=== PATIENT | male | born 1930 | race Caucasian/White ===

== ENCOUNTER → 2016-06-27 | Outpatient (CLI) | payer MEDICARE ==
[~2016-06-27] MED LIST: ACET50TAOT PO; ATEN25TA PO; CALC1CAP31 PO; ELIQ2.5T PO; FINA5TAB2 PO; FURO20TA2 PO; FURO40TA2 PO; GLIM4TAB PO; GLUC750T22 PO; JANU25TA PO; LOSA25TA8 PO; OXYB5TA PO; PRAV40TA2 PO; TERA5CA PO; VITA-121 PO
--- NOTE | 2016-06-27 15:01 | REP ---
CHEST X-RAY: Two views. HISTORY: Dyspnea. COMPARISON CHEST X-RAY: August 04, 2015. FINDINGS: Moderate cardiomegaly is again observed. There is fissural thickening visible on the lateral radiograph similar to the prior study. There is blunting of the left pleural angles consistent with left pleural fluid. This is similar to the prior study as well. Some pleural thickening is noted on the left. There is an old healed rib fracture on the left as well. Pulmonary vasculature is slightly cephalized. The aorta is calcific and tortuous. There are advanced degenerative changes in the shoulders. IMPRESSION: Cardiomegaly with blunting of the left pleural angle suggesting small left effusion. Pulmonary vascular cephalization. Fissural thickening. CHF pattern. Signed by Clint Garnica MD 06/27/2016 04:00 P
== END ==
LOC: M WUC 10:36
PROVIDERS: ATTEND Internal Medicine Cardiovascular Disease
DX: R06.00 Dyspnea, unspecified (principal); R91.8 Other nonspecific abnormal finding of lung field

== ENCOUNTER 2017-01-17 20:36 | Inpatient (IN) | payer MEDICARE ==
[~2017-01-17] VITALS: Ht 165.1 cm; Wt 88.1 kg
[~2017-01-17 20:36] MED LIST changes: -OXYB5TA PO; +OXYB5TAB10 PO
[2017-01-17] MEDS: FINASTERIDE 5 MG TAB PO SCH (21:00)
[2017-01-17] MEDS ORDERED: PRAVASTATIN 20 MG TAB PO SCH (21:00)
[2017-01-17] MEDS: APIXABAN 2.5 MG TAB (ELIQUIS) PO SCH (21:00)
[2017-01-17] MEDS: oxyBUTYnin 5 MG TAB PO SCH (21:00)
[2017-01-17 21:01] LABS: BASO % 0.1 % (0.0-1.0); IMMATURE GRANULOCYTE % 0.4 % (0-0); LYMPH # 0.3 10^3/uL (1.5-4.5); LYMPH % 3.1 % (24.0-44.0); MEAN CORPUSCULAR HEMOGLOBIN 30.7 pg (27.0-33.0); MEAN CORPUSCULAR HGB CONC 31.5 g/dl (32.0-36.5); MEAN CORPUSCULAR VOLUME 97.5 fl (80.0-96.0); MONO # 0.4 10^3/uL (0.0-0.8); NEUTROPHILS # 9.5 10^3/uL (1.8-7.7); NEUTROPHILS % 92.4 % (36.0-66.0); PLATELET COUNT, AUTOMATED 123 10^3/uL (150-450); RED CELL DISTRIBUTION WIDTH 16.4 % (11.5-14.5); WHITE BLOOD COUNT 10.3 10^3/uL (4.0-10.0)
[2017-01-17] MEDS ORDERED: SPIR25TA2 PO (21:04)
[2017-01-17 21:12] LABS: INR 1.28
[2017-01-17 21:14] LABS: CALCIUM LEVEL 9.8 MG/DL (8.8-10.2); CREATININE FOR GFR 1.98 MG/DL (0.70-1.30); GLOMERULAR FILTRATION RATE 34.1 (>35); POTASSIUM SERUM 4.7 MEQ/L (3.5-5.1)
[2017-01-17 21:16] VITALS: BP 168/102
[2017-01-17] MEDS ORDERED: LABETALOL HCL 100 MG/20 ML VIAL IV STA (21:16)
[2017-01-17] MEDS ORDERED: PIPERACILLIN/TAZOBACTAM SOD 3.375 GM in D5W 50 ML IV ONE (21:30)
--- NOTE | 2017-01-17 21:40 | REPUSA ---
CT of the head Clinical history: CVA. Protocol: Multiple axial CT images obtained with 5 mm slice thickness were obtained through the head without administration of contrast. Findings: There is a large area of low attenuation in the distribution of the left middle cerebral ar henry. A smaller area of low attenuation is seen in the left frontal lobe as well. The ventricles and sulci are symmetric but prominent in size bilaterally. There are periventricular areas of low attenua tion throughout the deep white matter. There is no evidence of acute hemorrhage. There is no midline shift, mass effect, or extra-axial fluid collection. The osseous structures are unremarkable. There i s an air fluid level in the left maxillary sinus. The other visualized paranasal sinuses and mastoid air cells are clear. Impression: 1. Acute left middle cerebral artery infarct. 2. Possible acute infarct in the left anterior cerebral artery is well involving the left frontal lob e. 3. Findings are consistent with age-related atrophy and chronic small vessel ischemic disease. 4. MRI would be helpful for further evaluation. 5. Left maxillary sinusitis. Dr. Worthy was notified of these findings at 9:30 PM on 01/17/2017.
[2017-01-17] MEDS ORDERED: ONDANSETRON 4MG/2ML VIAL (J2405) IV ONE (21:45)
[2017-01-17] MEDS ORDERED: PRAV80TA2 PO (22:06)
[2017-01-17] MEDS ORDERED: IPRATROPIUM 0.5MG/ALBUTEROL 2.5MG INH SOL UD 3ML (DUONEB)(J7620) NEB PRN (22:45)
[2017-01-17] MEDS ORDERED: FURO20TA2 PO (22:55)
[2017-01-17] MEDS ORDERED: PATIENT COMMENT (22:55)
[2017-01-18] VITALS (9 sets, daily range): BP systolic 131–168; BP diastolic 73–105; O2SAT 95–96
--- NOTE | 2017-01-18 02:54 | HPEPDOC ---
[facility] Medical History & Physical Date of Admission Jan 17, 2017 Other Provider PCP Mitch Attending Physician: SUNG DICKSON MD History and Physical ALCOHOLIC COUNSELOR: Dr. Ruff SPECIALIST FIELD ENGINEER: Dr. Ibarra CHIEF COMPLAINT: Altered mentation HISTORY OF PRESENT ILLNESS: [Patient found at home and unresponsive to the emergency department by police and EMT. Last known time of neurologically intact and at baseline was close to 24 hours ago as reported by his daughter. Unable to give meaningful history from the patient since he is nonverbal at this point. Evaluation by emergency department provider demonstrated a large ischemic stroke involving the left MCA, left anterior artery and left frontal lobe. Hospitalist was called for admission. Patient did not receive TPA since he was outside the window. Unable to give meaningful history from the patient. This was obtained from the patient's daughter and the electronic medical record. PAST MEDICAL HISTORY: 1. Sleep apnea with 2.5 liters at night. 2. Diabetes, uncontrolled. 3. Congestive heart failure unknown 4. History of Afib 5. Chronic kidney disease PAST SURGICAL HISTORY: 1. Cholecystectomy. 2. Hernia repair. 3. Carpal tunnel repair, bilateral. 4. Cataract surgery, bilateral . SOCIAL HISTORY: he lives alone. The patient had a history of chewing tobacco and using a pipe for 15 years; however, he quit during 1970s. The patient also expressed that he used to drink alcohol for 15 years as well. However, he quit during 1970s. Patient denies a history of illicit drug use. The patient expressed that he only traveled to [place]. Patient was in the . The patient [place] 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 FAMILY HISTORY: Noncontributory ALLERGIES: Please see below. REVIEW OF SYSTEMS: Unable to ascertain HOME MEDICATIONS: Please see below. PHYSICAL EXAMINATION: VITAL SIGNS: See below GENERAL APPEARANCE: No acute distress. Limited response to pain and verbal stimuli. With noted right sided neglect. HEENT: PERRLA. Throat clear. CARDIOVASCULAR: Irregular regular. LUNGS: Clear to auscultation. ABDOMEN: Soft, nontender. MUSCULOSKELETAL: No gross deformities. EXTREMITIES: No edema, no calf tenderness. NEUROLOGICAL: Unable to evaluate cranial nerves. Noted right sided neglect with the upper and lower extremities. Normal Babinski on the left, equivocal on the right, unable to follow commands effectively. PSYCHIATRIC: Negative. LABORATORY DATA: See below. IMAGING: Chest x-ray: No acute cardiopulmonary processes. Head CT without contrast: 1. Acute left middle cerebral artery infarct. 2. Possible acute infarct in the left anterior cerebral artery is well involving the left frontal lobe. 3. Findings are consistent with age-related atrophy and chronic small vessel ischemic disease. 4. MRI would be helpful for further evaluation. 5. Left maxillary sinusitis. Twelve-lead EKG atrial fibrillation, no acute ST-T wave abnormality MICROBIOLOGY: Please see below. Impression 86-year-old gentleman with large left CVA last known to be at baseline approximately 24 hours prior to presenting to the emergency department and determined to be outside the window for use of TPA. Problem list: 1. large left CVA involving the left MCA, left anterior artery, left frontal lobe. 2. History of Afib 3. Diabetes, uncontrolled. 4. Congestive heart failure unknown 5. Sleep apnea with 2.5 liters at night. 6. Chronic kidney disease Plan: Admit to PCU on telemetry. Check MRI, MRA of the brain along with carotid ultrasounds. Continue on Eliquis and aspirin. Continue on Pravachol. We'll monitor blood pressure. Had the opportunity to speak with Dr. Guerra who will see the patient tomorrow on consult. We added consult for physical therapy, occupational therapy, speech therapy and PFS. End-of-life discussion: Patient currently is DNR/DNI and according to his most form has elected to not have feeding tube placement. At any rate, I had a pantera discussion at bedside with the family explaining the nature of his large CVA and we'll have to see how he does over the next 24-48 hours. Disposition: Guarded Vital Signs Vital Signs Date Time Temp Pulse Resp B/P (MAP) Pulse Ox O2 Delivery O2 Flow Rate FiO2 01/18/17 01:10 168/90 (116) 01/18/17 01:02 95 20 96 01/18/17 00:49 4.0 01/17/17 20:39 97.8 Nasal Cannula Laboratory Data Labs 24H Laboratory Tests 2 01/17/17 20:40: Immature Granulocyte % (Auto) 0.4H, White Blood Count 10.3H, Red Blood Count 5.27, Hemoglobin 16.2, Hematocrit 51.4, Mean Corpuscular Volume 97.5H, Mean Corpuscular Hemoglobin 30.7, Mean Corpuscular Hemoglobin Concent 31.5L, Red Cell Distribution Width 16.4H, Platelet Count 123L, Neutrophils (%) (Auto) 92.4H , Lymphocytes (%) (Auto) 3.1L, Monocytes (%) (Auto) 4.0, Eosinophils (%) (Auto) 0.0, Basophils (%) (Auto) 0.1, Neutrophils # (Auto) 9.5H, Lymphocytes # (Auto) 0.3L, Monocytes # (Auto) 0.4, Eosinophils # (Auto) 0.0, Basophils # (Auto) 0.0, Immature Granulocyte # (Auto) 0.0, Nucleated Red Blood Cells % (auto) 0.0, Prothrombin Time 16.3H, Prothromb Time International Ratio 1.28, Activated Partial Thromboplast Time 27.2, Anion Gap 11, Glomerular Filtration Rate 34.1L, Blood Urea Nitrogen 28H, Creatinine 1.98H, Sodium Level 136, Potassium Level 4.7 , Chloride Level 100, Carbon Dioxide Level 25, Calcium Level 9.8, Total Creatine Kinase 119, Creatine Kinase MB 3.9H, Creatine Kinase MB Relative Index 3.27, Troponin I 0.29H CBC/BMP Laboratory Tests 01/17/17 20:40 Red Blood Count 5.27, Mean Corpuscular Volume 97.5 H, Mean Corpuscular Hemoglobin 30.7, Mean Corpuscular Hemoglobin Concent 31.5 L, Red Cell Distribution Width 16.4 H, Neutrophils (%) (Auto) 92.4 H, Lymphocytes (%) (Auto ) 3.1 L, Monocytes (%) (Auto) 4.0, Eosinophils (%) (Auto) 0.0, Basophils (%) ( Auto) 0.1, Neutrophils # (Auto) 9.5 H, Lymphocytes # (Auto) 0.3 L, Monocytes # ( Auto) 0.4, Eosinophils # (Auto) 0.0, Basophils # (Auto) 0.0, Calcium Level 9.8, Total Creatine Kinase 119 Microbiology Microbiology 01/17/17 Blood Culture, Received Pending 01/17/17 Blood Culture, Received Pending Home Medications Scheduled (Glucosamine) 750 Mg Tab, 750 MG PO DAILY Apixaban Base (Eliquis) 2.5 Mg Tab, 2.5 MG PO BID Calcitriol (Calcitriol) 0.25 Mcg Cap, 0.25 MCG PO ASDIRECTED TAKES ON MONDAY, MONDAY AND MONDAY Finasteride (Finasteride) 5 Mg Tab, 5 MG PO QHS Furosemide (Furosemide) 20 Mg Tab, 20 MG PO QPM Oxybutynin Chloride (Oxybutynin Chloride) 5 Mg Tab, 5 MG PO QHS Pravastatin Sodium (Pravastatin Sodium) 80 Mg Tab, 40 MG PO QPM Spironolactone (Spironolactone) 25 Mg Tab, 25 MG PO DAILY Miscellaneous Medications [Patient Comment] PATIENT WAS TAKING CARE OF HIS MEDICATION BUT I'M NOT SURE IF HE IS FULLY CAPABALE OF DOING SO. UNSURE IF HE IS COMPLAINT. Allergies Coded Allergies: No Known Drug Allergy (Unverified Allergy, Unknown, 04/13/15) ZE LEYVA DO Jan 18, 2017 02:54
[2017-01-18] MEDS ORDERED: SLF 3 ML SYR IV PRN (03:15)
[2017-01-18 05:38] LABS: MEAN CORPUSCULAR HEMOGLOBIN 31.3 pg (27.0-33.0); MEAN CORPUSCULAR VOLUME 94.7 fl (80.0-96.0); RED CELL DISTRIBUTION WIDTH 16.4 % (11.5-14.5)
[2017-01-18 05:58] LABS: CALCIUM LEVEL 9.1 MG/DL (8.8-10.2); CREATININE FOR GFR 1.77 MG/DL (0.70-1.30); GLOMERULAR FILTRATION RATE 38.8 (>35); POTASSIUM SERUM 4.6 MEQ/L (3.5-5.1)
[2017-01-18] MEDS: SLF 3 ML SYR IV SCH ×3 (06:00→22:10)
[2017-01-18 06:12] LABS: PLATELET COUNT, AUTOMATED 99 10^3/uL (150-450)
[2017-01-18 06:13] LABS: IMMATURE PLATELET FRACTION % 2.9 % (0.0-10.9)
[2017-01-18] MEDS: IPRATROPIUM 0.5MG/ALBUTEROL 2.5MG INH SOL UD 3ML (DUONEB)(J7620) NEB SCH ×2 (07:41)
--- NOTE | 2017-01-18 07:42 | REP ---
Portable chest, AP view, the patient upright: Comparison is 06/27/2016. There is chronic cardiomegaly, unchanged. There is interstitial coarsening compatible with interstitial infiltrates. No pleural effusion. The richard, mediastinum, and bony thorax are unremarkable. Impression: Chronic cardiomegaly. Interstitial infiltrates Signed by Juan Molina MD 01/18/2017 07:34 A
[2017-01-18] MEDS ORDERED: CALCITRIOL 0.25 MCG CAP (S0169) PO SCH (09:00)
[2017-01-18] MEDS ORDERED: SPIRONOLACTONE 25 MG TAB PO SCH (09:00)
[2017-01-18] MEDS ORDERED: ASPIRIN 81 MG CHEW TABLET PO SCH (09:00)
[2017-01-18] MEDS ORDERED: PIPERACILLIN/TAZOBACTAM SOD 2.25 GM in D5W 50 ML IV SCH (09:00)
[2017-01-18] MEDS: APIXABAN 2.5 MG TAB (ELIQUIS) PO SCH (09:00)
--- NOTE | 2017-01-18 09:56 | REP ---
MRA BRAIN WITHOUT CONTRAST: HISTORY: Acute stroke. 3D [id number] MR angiography was performed at the level of the [place]. There is no aneurysm or arteriovenous malformation. Mild atherosclerotic disease involves the cavernous and supraclinoid internal carotid arteries and middle cerebral artery trifurcations. Major intracranial vessels are patent. The vertebral arteries are equal in size. IMPRESSION: 1. There is no aneurysm or arteriovenous malformation. 2. Atherosclerotic disease as described above. Signed by Smith Ramirez MD 01/18/2017 10:10 A
--- NOTE | 2017-01-18 10:16 | REP ---
MR BRAIN WITHOUT CONTRAST: HISTORY: Acute stroke. COMPARISON: CT 01/17/2017. Increased signal intensity on diffusion and T2-weighted images is present in the left frontal and left temporoparietal lobes. This is decreased in signal intensity on ADC images and is consistent with acute infarctions. Decreased signal intensity on T2 gradient echo images is present consistent with acute hemorrhage. There is mass effect with partial effacement of the overlying cortical sulci and body of the left lateral ventricle with very minimal midline shift to the right. Areas of increased signal intensity on T2-weighted images are present in the periventricular and subcortical white matter. This represents small vessel ischemic disease. The ventricular system and cortical sulci are dilated consistent with mild volume loss. A very small amount of intraventricular hemorrhage is present. There is no extracerebral collection. Mucosal thickening is present in the left maxillary sinus. IMPRESSION: 1. There are acute hemorrhagic infarctions in the left frontal and left temporoparietal lobes. There is mass effect with minimal midline shift to the right. 2. Small vessel ischemic disease. 3. Moderate volume loss. Results were discussed with Dr. Gonsales at 10:00 a.m. this date Signed by Smith Ramirez MD 01/18/2017 10:19 A
--- NOTE | 2017-01-18 10:23 | REP ---
CAROTID ULTRASOUND: Real-time ultrasound evaluation and duplex Doppler interrogation of the extracranial carotid vasculature is performed. There is moderate plaquing and narrowing in the right carotid bulb extending into the internal and external carotid artery. Luminal narrowing is less than 50%. There is no evidence of hemodynamically significant stenosis of the right internal carotid artery. Normal flow velocities are seen. However, there is severe plaquing and narrowing of the proximal left internal carotid artery with apparent high-grade stenosis. Velocities do not appear to be accurate in estimating the degree of stenosis. The vertebral arteries demonstrate normal direction of flow. RIGHT LEFT Peak systolic velocity ICA 62.5 cm/s 45.6 cm/s End diastolic velocity ICA 11.6 cm/s 10.5 cm/s Peak systolic velocity CCA 70.6 cm/s 46.8 cm/s Peak systolic velocity ECA 83.4 cm/s 79.8 cm/s ICA/CCA ratio 0.89 0.97 IMPRESSION: Luminal narrowing of the right internal carotid artery less than 50%. High-grade stenosis proximal left internal carotid artery, not reflected by measured flow velocities. Signed by Juan Mancini MD 01/18/2017 10:14 A
[2017-01-18] MEDS ORDERED: SCOPOLAMINE 1.5 MG TRANSDERMAL TD PRN (10:45)
[2017-01-18] MEDS ORDERED: ATROPINE SULFATE 1% OP SOLN 2 ML BTL SL PRN (10:45)
[2017-01-18] MEDS ORDERED: ACETAMINOPHEN TAB 650MG DOSE (2X325MG) PO PRN (10:45)
[2017-01-18] MEDS ORDERED: ONDANSETRON 4MG/2ML VIAL (J2405) IV PRN (10:45)
[2017-01-18] MEDS ORDERED: ACETAMINOPHEN 650 MG SUPP PR PRN (10:45)
[2017-01-18] MEDS ORDERED: FLEET ENEMA PR PRN (10:45)
[2017-01-18] MEDS: LORazepam 2 MG/ML VIAL (J2060) IV PRN ×2 (13:42→18:20)
--- NOTE | 2017-01-18 14:49 | IPNPDOC ---
Text Note Date of Service The patient was seen on 01/18/17. NOTE Subjective: Patient is nonverbal at this point given his significant global aphasia. Objective: Vitals: (see below) General: No acute distress, laying comfortably in bed. HEENT: Moist mucous membranes. Neck: No JVD or lymphadenopathy Cardiac: RRR, No murmurs Pulm: Clear to auscultation b/l. No wheezing, rhonchi Abd: NT/ND + BS Ext: No edema or cyanosis Strength 0/5 right upper and lower extremity. 2 out of 5 left upper and lower extremity. CN 2-12 intact difficult to assess as patient is not following directions. He does have right neglect. Severe global aphasia Follows minimal commands, such as raising the left upper extremity. NIH score 29 Labs (see below) Images: MRI brain 01/18/17 IMPRESSION: 1. There are acute hemorrhagic infarctions in the left frontal and left temporoparietal lobes. There is mass effect with minimal midline shift to the right. 2. Small vessel ischemic disease. 3. Moderate volume loss. MRA Brain 01/18/17 IMPRESSION: 1. There is no aneurysm or arteriovenous malformation. 2. Atherosclerotic disease as described above. CT Head 01/18/17 Impression: 1. Acute left middle cerebral artery infarct. 2. Possible acute infarct in the left anterior cerebral artery is well involving the left frontal lobe. 3. Findings are consistent with age-related atrophy and chronic small vessel ischemic disease. 4. MRI would be helpful for further evaluation. 5. Left maxillary sinusitis. Assessment/Plan 1. Acute hemorrhagic left parietal/left temporoparietal infarctions- patient with severe deficits, and now progressing to dysphagia. Had spoken to the radiologist who read the MRI (Dr Ramirez), with notable hemorrhagic CVA (see above). He believes it's not ischemic in nature, although the initial CT Head did not show hemorrhage. I have had extensive discussion with the family who would like to make the patient comfort measures only. 2. Elevated troponin likely secondary to demand ischemia from #1. 3. History of atrial fibrillation, was on Eliquis 4. History of hypertension 5. History of hyperlipidemia 6. H/o BPH The patient has been made comfort measures only, and the MOLST form has been updated. VS,Fishbone, I+O VS, Fishbone, I+O Laboratory Tests 01/17/17 20:40 Red Blood Count 5.27, Mean Corpuscular Volume 97.5 H, Mean Corpuscular Hemoglobin 30.7, Mean Corpuscular Hemoglobin Concent 31.5 L, Red Cell Distribution Width 16.4 H, Neutrophils (%) (Auto) 92.4 H, Lymphocytes (%) (Auto ) 3.1 L, Monocytes (%) (Auto) 4.0, Eosinophils (%) (Auto) 0.0, Basophils (%) ( Auto) 0.1, Neutrophils # (Auto) 9.5 H, Lymphocytes # (Auto) 0.3 L, Monocytes # ( Auto) 0.4, Eosinophils # (Auto) 0.0, Basophils # (Auto) 0.0, Calcium Level 9.8, Total Creatine Kinase 119 01/18/17 05:22 Red Blood Count 4.92, Mean Corpuscular Volume 94.7, Mean Corpuscular Hemoglobin 31.3, Mean Corpuscular Hemoglobin Concent 33.0, Red Cell Distribution Width 16.4 H, Calcium Level 9.1, Total Creatine Kinase 557 #H Vital Signs Date Time Temp Pulse Resp B/P (MAP) Pulse Ox O2 Delivery O2 Flow Rate FiO2 01/18/17 11:40 Nasal Cannula 2.0 01/18/17 08:00 97.0 69 22 131/73 (92) 96 SUNG DICKSON MD Jan 18, 2017 14:49
[2017-01-18] MEDS ORDERED: FUROSEMIDE 20 MG TAB PO SCH (17:00)
[2017-01-18] MEDS: FINASTERIDE 5 MG TAB PO SCH (21:00)
[2017-01-18] MEDS: oxyBUTYnin 5 MG TAB PO SCH (21:00)
[2017-01-19] MEDS: LORazepam 2 MG/ML VIAL (J2060) IV PRN (00:31)
[2017-01-19] MEDS: SLF 3 ML SYR IV SCH ×3 (06:09→20:54)
[2017-01-19] MEDS: IPRATROPIUM 0.5MG/ALBUTEROL 2.5MG INH SOL UD 3ML (DUONEB)(J7620) NEB SCH ×4 (07:23→23:52)
[2017-01-19] MEDS: MORPHINE 2 MG/ML 1ML SYRINGE IV PRN ×2 (10:16→18:45)
[2017-01-19] MEDS: oxyBUTYnin 5 MG TAB PO SCH (20:53)
[2017-01-19] MEDS: FINASTERIDE 5 MG TAB PO SCH (20:54)
[2017-01-20] MEDS: LORazepam 2 MG/ML VIAL (J2060) IV PRN ×4 (04:14→19:50)
[2017-01-20] MEDS: SLF 3 ML SYR IV SCH ×3 (06:23→21:18)
[2017-01-20] MEDS: IPRATROPIUM 0.5MG/ALBUTEROL 2.5MG INH SOL UD 3ML (DUONEB)(J7620) NEB SCH ×3 (07:28→19:34)
[2017-01-20] MEDS: MORPHINE 2 MG/ML 1ML SYRINGE IV PRN ×6 (09:41→21:18)
[2017-01-20] MEDS: oxyBUTYnin 5 MG TAB PO SCH (21:00)
[2017-01-20] MEDS: FINASTERIDE 5 MG TAB PO SCH (21:00)
[2017-01-21] MEDS: SLF 3 ML SYR IV SCH ×3 (05:33→21:00)
[2017-01-21] MEDS: LORazepam 2 MG/ML VIAL (J2060) IV PRN ×2 (06:02→14:41)
[2017-01-21] MEDS: IPRATROPIUM 0.5MG/ALBUTEROL 2.5MG INH SOL UD 3ML (DUONEB)(J7620) NEB SCH ×3 (07:39→23:21)
[2017-01-21] MEDS: MORPHINE 2 MG/ML 1ML SYRINGE IV PRN ×3 (12:08→23:06)
[2017-01-21] MEDS: FINASTERIDE 5 MG TAB PO SCH (21:02)
[2017-01-21] MEDS: oxyBUTYnin 5 MG TAB PO SCH (21:02)
[2017-01-22] MEDS: MORPHINE 2 MG/ML 1ML SYRINGE IV PRN ×2 (01:11→03:12)
[2017-01-22] MEDS: SLF 3 ML SYR IV SCH (03:12)
[2017-01-22] MEDS: IPRATROPIUM 0.5MG/ALBUTEROL 2.5MG INH SOL UD 3ML (DUONEB)(J7620) NEB SCH (08:00)
--- NOTE | 2017-01-22 15:06 | DS.PDOC ---
Discharge Summary General Date of Admission Jan 17, 2017 at 22:27 Date of Discharge 01/22/17 Discharge Summary PROCEDURES PERFORMED DURING STAY: None. ADMITTING/DISCHARGE DIAGNOSES: 1. Acute hemorrhagic left parietal/left temporoparietal infarctions with minimal mass effect (compression of brain)- patient with severe deficits, and progressing to dysphagia. I have had extensive discussion with the family who would like to make the patient comfort measures only. 2. Elevated troponin likely secondary to demand ischemia from #1. 3. History of atrial fibrillation 4. History of hypertension 5. History of hyperlipidemia 6. H/o BPH 7. H/o diastolic CHF 8. JUAQUIN 9. CKD COMPLICATIONS/CHIEF COMPLAINT: CVA. HISTORY OF PRESENT ILLNESS/HOSPITAL COURSE: This 78-year-old male past medical history of atrial fibrillation, diabetes, congestive heart failure, atrial fibrillation, CAD who presents with altered mental status. Patient was found home unresponsive by EMS. His last baseline normal was 24 hours prior to being found down. Patient was brought to [facility], with the evaluation for gentleman status was noted to have a large area of CVA involving the left anterior artery, left frontal lobe, left MCA, with a follow-up MRI confirming of CVA which was intact well to hemorrhagic. The patient did have severe deficits, including hemiparesis, global aphasia, and the family had decided to make the patient METAL RIVETER. DISPOSITION: 20 . TIME SPENT ON DISCHARGE: Less than 30 minutes. Vital Signs/I&Os Vital Signs Date Time Temp Pulse Resp B/P (MAP) Pulse Ox O2 Delivery O2 Flow Rate FiO2 01/21/17 23:06 48 01/21/17 09:00 Nasal Cannula 2.0 01/18/17 08:00 97.0 69 131/73 (92) 96 Microbiology Microbiology 01/17/17 Blood Culture - Preliminary, Resulted No Growth after 72 hours. All specime... 01/17/17 Blood Culture - Preliminary, Resulted No Growth after 72 hours. All specime... Discharge Medications Scheduled (Glucosamine) 750 Mg Tab, 750 MG PO DAILY, (Reported) Apixaban Base (Eliquis) 2.5 Mg Tab, 2.5 MG PO BID, (Reported) Calcitriol (Calcitriol) 0.25 Mcg Cap, 0.25 MCG PO ASDIRECTED, (Reported) TAKES ON MONDAY, MONDAY AND MONDAY Finasteride (Finasteride) 5 Mg Tab, 5 MG PO QHS, (Reported) Furosemide (Furosemide) 20 Mg Tab, 20 MG PO QPM, (Reported) Oxybutynin Chloride (Oxybutynin Chloride) 5 Mg Tab, 5 MG PO QHS, (Reported) Pravastatin Sodium (Pravastatin Sodium) 80 Mg Tab, 40 MG PO QPM, (Reported) Spironolactone (Spironolactone) 25 Mg Tab, 25 MG PO DAILY, (Reported) Miscellaneous Medications [Patient Comment] , (Reported) PATIENT WAS TAKING CARE OF HIS MEDICATION BUT I'M NOT SURE IF HE IS FULLY CAPABALE OF DOING SO. UNSURE IF HE IS COMPLAINT. Allergies Coded Allergies: No Known Drug Allergy (Unverified Allergy, Unknown, 04/13/15) SUNG DICKSON MD Jan 22, 2017 15:06
== END 2017-01-22 03:55 | disposition expired | DRG 64 ==
LOC: M ED 20:36 → M ED INP 22:27 → M PCU 01-18 01:05 → M MS5PR 01-18 15:15
PROVIDERS: ADMIT Hospitalist; ATTEND Internal Medicine
DX: I61.9 Nontraumatic intracerebral hemorrhage, unspecified (principal); G93.5 Compression of brain; I69.351 Hemiplegia and hemiparesis following cerebral infarction affecting right dominant side; I50.32 Chronic diastolic (congestive) heart failure; I13.0 Hypertensive heart and chronic kidney disease with heart failure and stage 1 through stage 4 chronic kidney disease, or unspecified chronic kidney disease; I24.8 Other forms of acute ischemic heart disease; I69.391 Dysphagia following cerebral infarction; G47.33 Obstructive sleep apnea (adult) (pediatric); N18.9 Chronic kidney disease, unspecified; E78.5 Hyperlipidemia, unspecified; I48.91 Unspecified atrial fibrillation; Z91.5 Personal history of self-harm; Z51.5 Encounter for palliative care; E11.9 Type 2 diabetes mellitus without complications; Z79.899 Other long term (current) drug therapy; Z87.891 Personal history of nicotine dependence; J32.0 Chronic maxillary sinusitis; N40.0 Benign prostatic hyperplasia without lower urinary tract symptoms